=== PATIENT | female | born 1990 | race Caucasian/White ===

== ENCOUNTER 2024-02-12 06:02 | Inpatient (IN) ==
[2024-02-12 07:51] LABS: ABS Monocytes 0.5 10^3/uL (0.0-0.9); ABS Neutrophils 11.2 10^3/uL (1.5-7.6); Eosinophil % 0.1 %; Hematocrit 35.8 % (35-45); Hemoglobin 12.2 g/dL (11.5-14.3); Lymphocyte % 8.1 %; Mean Corpuscular Hemoglobin 31.1 pg (27-33); Mean Corpuscular Volume 91.6 fL (80-97); Mean Platelet Volume 10.9 fL (7.5-11.2); Platelet Count 134 10^3/uL (150-450); Red Cell Distribution Width 13.2 % (12-17); White Blood Count 12.7 10^3/uL (3.8-11.8)
[2024-02-12] MEDS: Penicillin G Potassium IV 5,000,000 UNITS in NS 0.9% 100 ml BAG 100 ML IVPB ONE (07:57)
[2024-02-12 09:54] LABS: Urine Benzodiazepine Screen None Detected (None Detect); Urine Cannabinoids Screen None Detected (None Detect); Urine Opiates Screen None Detected (None Detect)
[2024-02-12] MEDS: Penicillin G Potassium IV 3,000,000 UNITS in NS 0.9% 100 ml BAG 100 ML IVPB SCH (12:07)
[2024-02-12] MEDS: Lactated Ringers 1000 ml BAG 1,000 ML IV ONE (16:15)
[2024-02-12] MEDS ORDERED: Phenylephrine 40 mcg/mL 10mL (400mcg) SYRINGE IV PUSH PRN ×2 (16:38)
[2024-02-12] MEDS ORDERED: Sodium Citrate/Citric Acid LIQ 15 ML UDC PO PRN (16:38)
[2024-02-12] MEDS: OBEPIDURAL (200 ML) 200 ML EPIDURAL ONE (16:42)
[2024-02-12] MEDS ORDERED: OBEPIDURAL (200 ML) 200 ML EPIDURAL SCH (17:00)
[2024-02-12] MEDS: Lactated Ringers 1000 ml BAG 1,000 ML IV SCH (17:15)
[2024-02-12 18:16] LABS: Urine Appearance Clear; Urine Bilirubin Negative (Negative); Urine Blood Negative (Negative); Urine Color Light-Yellow; Urine Glucose Negative (Negative); Urine Ketones 2+ (Negative); Urine Nitrite Negative (Negative); Urine Protein Negative (Negative); Urine Specific Gravity 1.018 (1.002-1.030); Urine Urobilinogen Negative (Negative); Urine pH 5.5 (5.0-8.0)
[2024-02-12] MEDS ORDERED: Bupivacaine 0.25% SDV PF 10 ML VIAL INJ ONE (22:06)
[2024-02-12] MEDS ORDERED: fentaNYL 100 mcg/2 ml 50 MCG/ML VIAL ONE (22:06)
[2024-02-13] MEDS: Lidocaine 1% VIAL 10 MG/ML 30 ML VIAL INJ PRN (03:55)
[2024-02-13] MEDS ORDERED: Glycerin ADULT 2.4 gm SUPP PR PRN (04:19)
[2024-02-13] MEDS ORDERED: Lactated Ringers 1000 ml BAG 1,000 ML IV SCH (05:00)
[2024-02-13] MEDS: Witch Hazel PAD JAR TOPICAL PRN (05:41)
[2024-02-13] MEDS: Dibucaine 1% OINT 28.35 GM TUBE PR PRN (05:41)
[2024-02-13] MEDS: Buffered Lidocaine 1% SYRIN 1 ml INTRADERM ONE (08:40)
[2024-02-13] MEDS: Lactated Ringers 1000 ml BAG 1,000 ML IV SCH (08:41)
[2024-02-13] MEDS: Lidocaine 1.5% EPI 1:200,000 30 ML SDV ONE (08:41)
[2024-02-13] MEDS: Oxytocin in LR 20,000 MILLI.UNIT/1,000 ML BAG IV SCH ×2 (08:41)
[2024-02-14 06:37] LABS: ABS Basophils 0.1 10^3/uL (0.0-0.1); ABS Lymphocytes 1.8 10^3/uL (1.0-4.8); ABS Monocytes 0.7 10^3/uL (0.0-0.9); ABS Neutrophils 8.5 10^3/uL (1.5-7.6); Eosinophil % 0.4 %; Hematocrit 28.5 % (35-45); Hemoglobin 9.8 g/dL (11.5-14.3); Mean Corpuscular Hemoglobin 31.6 pg (27-33); Mean Corpuscular Hgb Conc 34.3 g/dL (31-36); Mean Corpuscular Volume 92.2 fL (80-97); Mean Platelet Volume 9.9 fL (7.5-11.2); Platelet Count 115 10^3/uL (150-450); Red Blood Count 3.09 10^6/uL (3.63-4.92); Red Cell Distribution Width 13.5 % (12-17); White Blood Count 11.1 10^3/uL (3.8-11.8)
[2024-02-15 07:49] VITALS: BP 105/53
== END 2024-02-15 14:30 | disposition home or self-care (01) | DRG 807 ==
LOC: MCHOBOUT 06:02 → MCHOB 07:06
PROVIDERS: ATTEND Midwife